=== PATIENT | female | born 1950 | race Caucasian/White ===

== ENCOUNTER 2023-09-23 14:42 | Inpatient (IN) | payer MEDICARE ==
[~2023-09-23] VITALS: Ht 172.7 cm; Wt 86.6 kg
[2023-09-23] MEDS ORDERED: MAGNESIUM HYDROXIDE 30 ML UDC PO PRN (15:00)
[2023-09-23] MEDS ORDERED: MAG HYDROX/AL HYDROX/SIMETH 30 ML UDC PO PRN (15:00)
[2023-09-23 15:48] VITALS: BP 159/100; TEMP 97; O2SAT 97
[2023-09-23 16:00] VITALS: BP 159/100; TEMP 98.7; O2SAT 97
[2023-09-23] MEDS ORDERED: RIVA10TA PO (17:19)
[2023-09-23] MEDS ORDERED: DIFL5DRO RIGHTEYE (17:19)
[2023-09-23] MEDS ORDERED: ERGO500093 PO (17:19)
[2023-09-23] MEDS ORDERED: CYAN-6 IM (17:19)
[2023-09-23] MEDS ORDERED: LUMA42CA PO (17:19)
[2023-09-23] MEDS ORDERED: DORZ10DR11 RIGHTEYE (17:19)
[2023-09-23] MEDS ORDERED: LORA-259 PO (17:19)
[2023-09-23] MEDS ORDERED: CYANOCOBALAMIN 1,000 MCG/ML VIAL IM SCH (20:00)
[2023-09-23] MEDS ORDERED: ERGOCALCIFEROL (VITAMIN D 2) 50,000 UNIT CAPSULE PO SCH (20:00)
[2023-09-23] MEDS: clonazePAM 0.5 MG TABLET PO PRN (20:09)
[2023-09-23] MEDS: TIMOLOL MAL/DORZOLAM HCL OPHTH 10 ML BOTTLE RIGHTEYE SCH (21:20)
[2023-09-23 21:34] VITALS: BP 149/102; TEMP 98.2; O2SAT 97
[2023-09-23 22:42] VITALS: BP 142/94; TEMP 98; O2SAT 98
[2023-09-23] MEDS: TEMAZEPAM 7.5 MG CAPSULE PO PRN (23:11)
[2023-09-24 08:00] VITALS: BP 126/85; TEMP 97.8; O2SAT 97
[2023-09-24 08:03] LABS: CHOLESTEROL 170 mg/dL (<200); HDL CHOLESTEROL 37 mg/dL (40-60); LDL 110 mg/dL (0-99); TRIGLYCERIDES 61 mg/dL (30-150)
[2023-09-24 08:04] LABS: ALANINE AMINOTRANSFERASE 21 U/L (12-78); ALBUMIN 2.2 g/dL (3.4-5.0); ALKALINE PHOSPHATASE 54 U/L (46-116); ASPARTATE AMINOTRANSFERASE 18 U/L (15-37); BILIRUBIN,TOTAL 0.6 mg/dL (0.2-1.0); CALCIUM, SERUM 8.7 mg/dL (8.5-10.1); CARBON DIOXIDE 24 mmol/L (21-32); CHLORIDE 105 mmol/L (98-107); CREATININE 0.7 mg/dL (0.6-1.3); GLUCOSE 92 mg/dL (74-106); POTASSIUM 3.7 mmol/L (3.5-5.1); SODIUM SERUM 139 mmol/L (136-145); TOTAL PROTEIN, SERUM 5.8 g/dL (6.4-8.2); UREA NITROGEN, BLOOD 10 mg/dL (7-18)
[2023-09-24] MEDS: ESCITALOPRAM OXALATE (10 MG) 10 MG TABLET PO SCH (13:33)
[2023-09-24 16:00] VITALS: BP 139/99; TEMP 97.9; O2SAT 98
[2023-09-24] MEDS: prednisoLONE ACETATE 1% SUSP 5 ML BOTTLE RIGHTEYE SCH (16:01)
[2023-09-24] MEDS ORDERED: RISPERIDONE 0.25 MG TAB.RAPDIS PO SCH (17:00)
[2023-09-24] MEDS: RIVAROXABAN 10 MG TABLET PO SCH (17:58)
[2023-09-24] MEDS ORDERED: risperiDONE-M 0.5 MG TAB.RAPDIS PO SCH (18:00)
[2023-09-24] MEDS: risperiDONE-M 0.5 MG TAB.RAPDIS PO SCH (18:05)
[2023-09-24 20:53] VITALS: BP 152/85; TEMP 97.8; O2SAT 100
[2023-09-24] MEDS: ACETAMINOPHEN 325 MG TABLET PO PRN (22:02)
[2023-09-25 08:00] VITALS: BP 150/91; TEMP 98.6; O2SAT 98
[2023-09-25] MEDS: risperiDONE-M 0.5 MG TAB.RAPDIS PO SCH (08:39)
[2023-09-25 11:47] LABS: THYROID STIMULATING HORMONE 4.37 uIU/mL (0.358-3.74)
[2023-09-25 16:00] VITALS: BP 140/86; TEMP 98.7; O2SAT 98
[2023-09-25 20:00] VITALS: BP 127/75; TEMP 98.6; O2SAT 96
[2023-09-26 05:08] LABS: FOLIC ACID 6.5 ng/mL (>3.0)
[2023-09-26 08:00] VITALS: BP 127/83; TEMP 97.4; O2SAT 97
[2023-09-30 08:07] LABS: VITAMIN B1 THIAMINE,WB 90.8 nmol/L (66.5-200.0)
== END 2023-09-26 14:30 | disposition home or self-care (01) | DRG 885 ==
LOC: GPS 14:42
PROVIDERS: ADMIT Psychiatry & Neurology Psychiatry; ATTEND Nurse Practitioner Family
DX: F29 Unspecified psychosis not due to a substance or known physiological condition (principal); F41.9 Anxiety disorder, unspecified; F32.A Depression, unspecified; I48.91 Unspecified atrial fibrillation; F90.9 Attention-deficit hyperactivity disorder, unspecified type; Z91.81 History of falling; H40.9 Unspecified glaucoma; Z79.01 Long term (current) use of anticoagulants; Z79.899 Other long term (current) drug therapy; E66.3 Overweight; Z68.29 Body mass index [BMI] 29.0-29.9, adult; F60.0 Paranoid personality disorder; H54.8 Legal blindness, as defined in USA
CPT/HCPCS: 36415; 80048-TC; 80053-TC; 80061-TC; 82607-TC; 83921; 84425; 84443-TC; 97116-TC; 97530-TC